=== PATIENT | female | born 1965 | race Caucasian/White ===

== ENCOUNTER 2018-12-14 19:28 | Emergency (ER) | payer OTHER ==
[2018-12-14 19:53] VITALS: BP 152/99
[2018-12-14] MEDS ORDERED: Dexamethasone TAB* 4 MG PO ONE (20:13)
[2018-12-14] MEDS ORDERED: Amoxicillin/Clavulanate TAB* 875 MG PO ONE (20:13)
--- NOTE | 2018-12-14 20:14 | UC ---
UC General HPI - HPI Summary HPI Summary: sore throat and upset stomach since last pm. - History of Current Complaint Chief Complaint: UCGeneralIllness Stated Complaint: SORE THROAT, UPSET STOMACH Time Seen by Provider: 12/14/18 20:07 Hx Obtained From: Patient Hx Last Menstrual Period: CURRENT Onset/Duration: Gradual Onset Timing: Constant Pain Intensity: 7 Associated Signs & Symptoms: Negative: Fever - Allergy/Home Medications Allergies/Adverse Reactions: Allergies Allergy/AdvReac Type Severity Reaction Status Date / Time Sulfa (Sulfonamide Allergy Rash Verified 12/14/18 19:54 Antibiotics) PMH/Surg Hx/FS Hx/Imm Hx Endocrine History: Thyroid Disease - Surgical History Surgical History: Yes Surgery Procedure, Year, and Place: OBLATION. TUBAL - Family History Known Family History: Positive: None - Social History Lives: With Family Alcohol Use: Weekly Substance Use Type: None Smoking Status (MU): Former Smoker When Did the Patient Quit Smoking/Using Tobacco: 1998 Review of Systems All Other Systems Reviewed And Are Negative: Yes ENT: Positive: Sore Throat Gastrointestinal: Positive: Nausea Physical Exam Triage Information Reviewed: Yes Appearance: Well-Appearing Vital Signs: Initial Vital Signs Temp 98.1 F 12/14/18 19:50 Pulse 59 12/14/18 19:50 Resp 16 12/14/18 19:50 BP 152/99 12/14/18 19:50 Pulse Ox 100 12/14/18 19:50 Vital Signs Reviewed: Yes Eyes: Positive: Conjunctiva Clear ENT: Positive: Pharyngeal erythema, TMs normal, Uvula midline - with mild to moderate swelling and erythema. no airway compromise.. Negative: Nasal congestion, Nasal drainage, Trismus, Muffled voice, Hoarse voice Neck: Positive: Supple, Tenderness @ - peritonsilar nodes., Enlarged Nodes @ - peritonsilar Respiratory: Positive: Lungs clear, Normal breath sounds Cardiovascular: Positive: RRR, No Murmur Abdomen Description: Positive: Nontender, No Organomegaly, Soft Bowel Sounds: Positive: Present Musculoskeletal: Positive: ROM Intact Neurological: Positive: Alert Psychological: Positive: Age Appropriate Behavior Skin Exam: Normal Skin: Negative: Rashes Course/Dx - Course Course Of Treatment: DIAGNOSTIC=RAPID STREP IS NEGATIVE. 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 recent BP at PCP was WNL thus BP illness related - Differential Dx - Multi-Symptom Differential Diagnoses: Other - no concern for peritonsilar abscess; however, will tx for presumptive bacterail infection given the uvulitis with moderate swelling. - Diagnoses Provider Diagnosis: Uvulitis Discharge - Sign-Out/Discharge Documenting (check all that apply): Patient Departure All imaging exams completed and their final reports reviewed: No Studies - Discharge Plan Condition: Stable Disposition: HOME Prescriptions: Amoxicillin/Clavulanate TAB* [Augmentin TAB 875*] 875 mg PO BID 10 Days #20 tab Patient Education Materials: Uvulitis (ED) Referrals: Irais Weiss PA [Primary Care Provider] - Additional Instructions: FOLLOW UP PRIMARY CARE IF NOT BETTER IN 5-7 DAYS OR SOONER IF WORSE. - Billing Disposition and Condition Condition: STABLE Disposition: Home - Attestation Statements Provider Attestation: I was available for consult. This patient was seen by the LUCIAN. The patient was not presented to, seen by, or examined by me. -Nenita
== END 2018-12-14 20:37 | disposition home or self-care (01) ==
LOC: UCCORT 19:28
DX: K12.2 Cellulitis and abscess of mouth (principal); R11.0 Nausea; J02.9 Acute pharyngitis, unspecified; E07.9 Disorder of thyroid, unspecified; Z88.2 Allergy status to sulfonamides; Z87.891 Personal history of nicotine dependence
CPT/HCPCS: 87651; 99212; A9270-GY; G0463; J8540